=== PATIENT | male | born 1935 | race Caucasian/White ===

== ENCOUNTER 2016-03-23 12:10 | Inpatient (IN) | payer MEDICARE, OTHER ==
[~2016-03-23] VITALS: Ht 160 cm; Wt 99.8 kg
[2016-03-23] MEDS ORDERED: ASPIRIN 325 MG TABLET ONE (12:27)
[2016-03-23] MEDS ORDERED: ASPIRIN 325 MG TABLET PO ONE (12:30)
[2016-03-23 12:51] LABS: BASOPHILS % (AUTO) 0.3 % (0.0-2.0); DIFF TOTAL % 100 %; EOSINOPHILS # (AUTO) 0.2 /CMM (0.0-0.7); HEMATOCRIT 36 % (39-51); HEMOGLOBIN 12.3 g/dL (13.5-17.5); LYMPHOCYTES # (AUTO) 1.3 /CMM (0.8-4.8); LYMPHOCYTES % (AUTO) 26.7 % (20.0-44.0); MEAN CORPUSCULAR HEMOGLOBIN 32 PG (26.0-33.0); MEAN CORPUSCULAR HGB CONC 34 g/dl (31.0-36.0); MEAN CORPUSCULAR VOLUME 93 fL (80-96); MONOCYTES # (AUTO) 0.3 /CMM (0.1-1.30); NEUTROPHILS # (AUTO) 3.1 /CMM (1.8-8.9); PLATELET COUNT (AUTO) 155 /CMM (150-450); RED BLOOD CELL COUNT(AUTO) 3.89 MIL/uL (4.5-6.0); WHITE BLOOD COUNT (AUTO) 4.9 K/uL (4.3-11.0)
[2016-03-23 13:03] LABS: CREATININE 1.3 mg/dL (0.6-1.3); POTASSIUM 3.7 mmol/L (3.5-5.1)
[2016-03-23 13:06] LABS: INR 1.01 (0.87-1.13); PROTHROMBIN TIME 10.6 SECS (9.5-12.7)
[2016-03-23 13:17] LABS: TROPONIN I 0.659 ng/mL (0.00-0.056)
[2016-03-23] MEDS ORDERED: NITROGLYCERIN 0.4 MG/TAB BOTTLE ONE (14:00)
[2016-03-23] MEDS ORDERED: ENOXAPARIN SODIUM 60 MG/0.6 ML DISP.SYRIN SQ ONE (14:00)
[2016-03-23] MEDS ORDERED: NITROGLYCERIN 0.4 MG/TAB BOTTLE SL ONE (14:00)
[2016-03-23] MEDS ORDERED: ENOXAPARIN SODIUM 100 MG/ML DISP.SYRIN SQ ONE (14:00)
[2016-03-23] MEDS ORDERED: MYRBETRIQ PO (14:05)
[2016-03-23] MEDS ORDERED: HYDR-4076 PO (14:05)
[2016-03-23] MEDS ORDERED: AMLO5TAB2 PO (14:05)
[2016-03-23] MEDS ORDERED: METF500T4 PO (14:05)
[2016-03-23] MEDS ORDERED: MELO-270 PO (14:05)
[2016-03-23] MEDS ORDERED: ATOR20TA PO (14:05)
[2016-03-23] MEDS ORDERED: SITA100T PO (14:05)
[2016-03-23] MEDS ORDERED: MEMA28CA PO (14:05)
[2016-03-23] MEDS ORDERED: VALS1TAB50 PO (14:05)
[2016-03-23] MEDS ORDERED: MECL-102 PO (14:05)
[2016-03-23] MEDS ORDERED: DONE5TAB34 PO (14:05)
[2016-03-23] MEDS ORDERED: MORPHINE SULFATE INJ 2 MG/ML DISP.SYRIN IV PRN (15:30)
[2016-03-23] MEDS ORDERED: MECLIZINE HCL 25 MG TABLET PO PRN (15:30)
[2016-03-23] MEDS ORDERED: NITROGLYCERIN 0.4 MG/TAB BOTTLE SL PRN (15:30)
[2016-03-23] MEDS ORDERED: Medication Not On Formulary EA ([Myrbetriq] 25 MG) PO SCH (15:30)
[2016-03-23 16:00] VITALS: BP 117/62
[2016-03-23] MEDS ORDERED: hydrALAZINE HCL 25 MG TABLET PO SCH (17:00)
[2016-03-23] MEDS: MEMANTINE HCL 5 MG TABLET PO SCH (17:13)
[2016-03-23] MEDS: SITAGLIPTIN PHOSPHATE 50 MG TABLET PO SCH (17:14)
[2016-03-23] MEDS: VALSARTAN 80 MG TABLET PO SCH (17:15)
[2016-03-23] MEDS: HYDROCHLOROTHIAZIDE 25 MG TABLET PO SCH (17:15)
[2016-03-23 20:25] VITALS: BP 146/59
[2016-03-23] MEDS: CARVEDILOL 6.25 MG TABLET PO SCH (21:03)
[2016-03-24] VITALS (7 sets, daily range): BP systolic 102–148; BP diastolic 48–86
[2016-03-24] MEDS: ENOXAPARIN SODIUM 100 MG/ML DISP.SYRIN SQ SCH ×2 (01:24→13:02)
[2016-03-24] MEDS: DONEPEZIL 5 MG TABLET PO SCH (08:22)
[2016-03-24] MEDS: SITAGLIPTIN PHOSPHATE 50 MG TABLET PO SCH (08:23)
[2016-03-24] MEDS: VALSARTAN 80 MG TABLET PO SCH (08:23)
[2016-03-24] MEDS: CARVEDILOL 6.25 MG TABLET PO SCH ×2 (08:24→21:50)
[2016-03-24] MEDS: ISOSORBIDE MONONITRATE (30MG) 30 MG TAB.SR.24H PO SCH (08:24)
[2016-03-24] MEDS: HYDROCHLOROTHIAZIDE 25 MG TABLET PO SCH (08:24)
[2016-03-24] MEDS: AMLODIPINE BESYLATE 5 MG TABLET PO SCH (08:25)
[2016-03-24] MEDS: MEMANTINE HCL 5 MG TABLET PO SCH ×2 (08:25→16:06)
[2016-03-24] MEDS: ASPIRIN 81 MG TAB.CHEW PO SCH (08:25)
[2016-03-24] MEDS ORDERED: ATORVASTATIN 10 MG TABLET PO SCH (09:00)
[2016-03-24 15:35] LABS: BASOPHILS % (AUTO) 0.3 % (0.0-2.0); DIFF TOTAL % 100 %; EOSINOPHILS # (AUTO) 0.2 /CMM (0.0-0.7); EOSINOPHILS % (AUTO) 4.7 % (0.0-6.0); HEMATOCRIT 35 % (39-51); HEMOGLOBIN 11.8 g/dL (13.5-17.5); LYMPHOCYTES # (AUTO) 1.5 /CMM (0.8-4.8); LYMPHOCYTES % (AUTO) 28.5 % (20.0-44.0); MEAN CORPUSCULAR HEMOGLOBIN 31 PG (26.0-33.0); MEAN CORPUSCULAR HGB CONC 34 g/dl (31.0-36.0); MEAN CORPUSCULAR VOLUME 92 fL (80-96); MONOCYTES # (AUTO) 0.4 /CMM (0.1-1.30); MONOCYTES % (AUTO) 8.2 % (2.0-12.0); NEUTROPHILS # (AUTO) 3.1 /CMM (1.8-8.9); NEUTROPHILS % (AUTO) 58.3 % (43.0-81.0); PLATELET COUNT (AUTO) 174 /CMM (150-450); RED BLOOD CELL COUNT(AUTO) 3.79 MIL/uL (4.5-6.0); WHITE BLOOD COUNT (AUTO) 5.3 K/uL (4.3-11.0)
[2016-03-24 15:47] LABS: CREATININE 1.5 mg/dL (0.6-1.3); PHOSPHORUS 3.7 mg/dL (2.5-4.9); POTASSIUM 3.9 mmol/L (3.5-5.1)
[2016-03-24] MEDS ORDERED: POLYETHYLENE GLYCOL 3350 17 GM POWD.PACK PO ONE (17:30)
[2016-03-24] MEDS ORDERED: BISACODYL SUPP (10 MG) 10 MG/SUPP.RECT SUPP.RECT RC ONE (17:30)
[2016-03-25] VITALS: BP 103/53
[2016-03-25 04:00] VITALS: BP 113/50
[2016-03-25] MEDS ORDERED: CLOPIDOGREL BISULFATE 75 MG TABLET PO ONE (07:00)
[2016-03-25 08:00] VITALS: BP 107/50
[2016-03-25] MEDS: ASPIRIN 81 MG TAB.CHEW PO SCH (08:13)
[2016-03-25] MEDS: DONEPEZIL 5 MG TABLET PO SCH (08:13)
[2016-03-25] MEDS: SITAGLIPTIN PHOSPHATE 50 MG TABLET PO SCH (08:13)
[2016-03-25] MEDS: AMLODIPINE BESYLATE 5 MG TABLET PO SCH (08:14)
[2016-03-25] MEDS: ISOSORBIDE MONONITRATE (30MG) 30 MG TAB.SR.24H PO SCH (08:14)
[2016-03-25] MEDS: HYDROCHLOROTHIAZIDE 25 MG TABLET PO SCH (08:14)
[2016-03-25] MEDS: MEMANTINE HCL 5 MG TABLET PO SCH ×2 (08:14→16:06)
[2016-03-25] MEDS: VALSARTAN 80 MG TABLET PO SCH (08:15)
[2016-03-25] MEDS: CARVEDILOL 6.25 MG TABLET PO SCH (08:15)
[2016-03-25] MEDS ORDERED: NA PHOS,M-B/NA PHOS,DI-BA 1 EA ENEMA RC ONE (09:00)
[2016-03-25] MEDS ORDERED: ATORVASTATIN 10 MG TABLET PO SCH (09:00)
[2016-03-25] MEDS ORDERED: IV NS 0.9% 1,000 ML IV PRN (09:30)
[2016-03-25] MEDS ORDERED: IV NS 0.9% 1,000 ML BAG IV PRN (09:30)
[2016-03-25] MEDS ORDERED: IV SET PRIMARY PUMP SET 1 EA INFUS.SET MC ONE (09:32)
[2016-03-25 09:33] LABS: BASOPHILS % (AUTO) 0.6 % (0.0-2.0); DIFF TOTAL % 100 %; EOSINOPHILS # (AUTO) 0.2 /CMM (0.0-0.7); HEMATOCRIT 36 % (39-51); HEMOGLOBIN 12.1 g/dL (13.5-17.5); LYMPHOCYTES # (AUTO) 1.4 /CMM (0.8-4.8); LYMPHOCYTES % (AUTO) 30.5 % (20.0-44.0); MEAN CORPUSCULAR HEMOGLOBIN 31 PG (26.0-33.0); MEAN CORPUSCULAR HGB CONC 34 g/dl (31.0-36.0); MEAN CORPUSCULAR VOLUME 92 fL (80-96); MONOCYTES # (AUTO) 0.5 /CMM (0.1-1.30); MONOCYTES % (AUTO) 9.7 % (2.0-12.0); NEUTROPHILS # (AUTO) 2.6 /CMM (1.8-8.9); NEUTROPHILS % (AUTO) 54.2 % (43.0-81.0); PLATELET COUNT (AUTO) 160 /CMM (150-450); RED BLOOD CELL COUNT(AUTO) 3.91 MIL/uL (4.5-6.0); WHITE BLOOD COUNT (AUTO) 4.7 K/uL (4.3-11.0)
[2016-03-25 09:40] LABS: CREATININE 1.4 mg/dL (0.6-1.3); POTASSIUM 4.3 mmol/L (3.5-5.1)
[2016-03-25 12:00] VITALS: BP 123/66
== END 2016-03-25 12:30 | disposition short-term general hospital (02) | DRG 280 ==
LOC: ER 12:13 → TELE 15:02
PROVIDERS: ADMIT Internal Medicine; ATTEND Internal Medicine
DX: I21.4 Non-ST elevation (NSTEMI) myocardial infarction (principal); N17.0 Acute kidney failure with tubular necrosis; I13.0 Hypertensive heart and chronic kidney disease with heart failure and stage 1 through stage 4 chronic kidney disease, or unspecified chronic kidney disease; E78.5 Hyperlipidemia, unspecified; E66.01 Morbid (severe) obesity due to excess calories; E11.22 Type 2 diabetes mellitus with diabetic chronic kidney disease; F03.90 Unspecified dementia, unspecified severity, without behavioral disturbance, psychotic disturbance, mood disturbance, and anxiety; I25.10 Atherosclerotic heart disease of native coronary artery without angina pectoris; N18.9 Chronic kidney disease, unspecified; Z68.39 Body mass index [BMI] 39.0-39.9, adult; I50.9 Heart failure, unspecified
CPT/HCPCS: 36415; 71010-TC; 80048-TC; 80061-TC; 83735-TC; 84100-TC; 84484-TC; 85025-TC; 85730-TC; 87081-TC; 93307-TC; A4606; J1650; J7030; Z7610

== ENCOUNTER 2020-06-18 15:09 | Inpatient (IN) | payer MEDICARE, OTHER ==
[~2020-06-18] VITALS: Ht 162.6 cm; Wt 103.0 kg
[2020-06-18] VITALS (9 sets, daily range): BP systolic 132–167; BP diastolic 73–94
[~2020-06-18 15:09] MED LIST: AMLO-212 PO; ATOR20TA PO; DONE5TAB34 PO; HYDR-4076 PO; MECL-159 PO; MELO-105 PO; MEMA28CA PO; METF-440 PO; MYRBETRIQ PO; SITA100T PO; VALS1TAB6 PO
--- NOTE | 2020-06-18 15:18 | NUR ---
PT ARRIVED IN ICU FROM [facility] VIA AMBULANCE. AT BEDSIDE. PT ALERT, OX1, PLEASANT. ABRASION NOTED ON BACK OF HEAD, NO DRAINAGE NOTED. PT SETTLED IN BED. WILL CONTINUE TO MONITOR.
[2020-06-18] MEDS ORDERED: ASPI-1169 PO (15:57)
[2020-06-18] MEDS ORDERED: VALS160T29 PO (15:57)
[2020-06-18] MEDS ORDERED: QUET25TA PO (15:58)
[2020-06-18] MEDS ORDERED: LORA-259 PO (15:59)
[2020-06-18] MEDS ORDERED: ONDANSETRON HCL/PF 4 MG/2 ML VIAL IVP PRN (16:30)
[2020-06-18] MEDS ORDERED: ACETAMINOPHEN 325 MG TABLET PO PRN (16:30)
[2020-06-18] MEDS ORDERED: BLOOD SUGAR DIAGNOSTIC 1 EACH STRIP IN SCH (17:30)
--- NOTE | 2020-06-18 19:10 | NUR ---
RN/ICU-PT. NOTED NOT TO HAVE ANY IV LINE. PT. IS A VERY HARD STICK , MULTIPLE ATTEMPTS TO INSERT IV WAS DONE BY SEVERAL RN'S BUT TO NO AVAIL. WILL OBTAIN AN ORDER FROM HOSPITALIST MIRROR INSPECTOR FOR A MIDLINE INSERTION.
--- NOTE | 2020-06-18 19:25 | NUR ---
RN/ICU- PICC ALISA CARREON HERE TO INSERT A MIDLINE POST OBTAINING ORDER FROM CORRY OWENS.
--- NOTE | 2020-06-18 19:30 | NUR ---
END OF SHIFT NOTE: PT HAD CT OF HEAD, PER RADIOLOGIST NO STROKE NOTED. DR. VARGAS NOTIFIED. PT ACCIDENTLY PULLED OUT LEFT HAND IV AT 1630. PT IS DIFFICULT STICK, UNABLE TO GET PERIPHERAL IV, MIDLINE INSERTED. PT PASSED SWALLOW EVAL. PT CHECKED ON HOURLY AND PRN BY NURSING STAFF.
[2020-06-18 19:54] LABS: ALANINE AMINOTRANSFERASE 33 U/L (12-78); ALBUMIN 3.8 g/dL (3.4-5.0); ALKALINE PHOSPHATASE 59 U/L (46-116); ASPARTATE AMINOTRANSFERASE 20 U/L (15-37); BILIRUBIN,TOTAL 0.7 mg/dL (0.2-1.0); CALCIUM, SERUM 9.5 mg/dL (8.5-10.1); CARBON DIOXIDE 29 mmol/L (21-32); CHLORIDE 102 mmol/L (98-107); CREATININE 1.7 mg/dL (0.6-1.3); GLUCOSE 163 mg/dL (74-106); POTASSIUM 4.1 mmol/L (3.5-5.1); SODIUM SERUM 139 mmol/L (136-145); TOTAL PROTEIN, SERUM 8.2 g/dL (6.4-8.2); UREA NITROGEN, BLOOD 33 mg/dL (7-18)
[2020-06-18 20:00] LABS: D-DIMER 0.79 mg/L(FEU (0.17-0.50)
[2020-06-18] MEDS ORDERED: DEXTROSE 50%-WATER 50 ML DISP.SYRIN IV PRN (20:00)
[2020-06-18 20:01] LABS: CHOLESTEROL 246 mg/dL (<200); HDL CHOLESTEROL 45 mg/dL (40-60); LDL 141 mg/dL (0-99); THYROID STIMULATING HORMONE 3.277 uIU/mL (0.358-3.74); TRIGLYCERIDES 259 mg/dL (30-150)
[2020-06-18 20:28] LABS: BASOPHILS % (AUTO) 0.2 % (0.0-2.0); EOSINOPHILS % (AUTO) 1.1 % (0.0-6.0); HEMATOCRIT 39 % (39-51); HEMOGLOBIN 12.9 g/dL (13.5-17.5); LYMPHOCYTES # (AUTO) 1.7 /CMM (0.8-4.8); LYMPHOCYTES % (AUTO) 22.2 % (20.0-44.0); MEAN CORPUSCULAR HGB CONC 33 g/dl (31.0-36.0); MEAN CORPUSCULAR VOLUME 93 fL (80-96); MONOCYTES # (AUTO) 0.7 /CMM (0.1-1.30); MONOCYTES % (AUTO) 8.8 % (2.0-12.0); NEUTROPHILS # (AUTO) 5.2 /CMM (1.8-8.9); NEUTROPHILS % (AUTO) 67.7 % (43.0-81.0); PLATELET COUNT (AUTO) 211 /CMM (150-450); RED BLOOD CELL COUNT(AUTO) 4.16 MIL/uL (4.5-6.0); WHITE BLOOD COUNT (AUTO) 7.6 K/uL (4.3-11.0)
[2020-06-18] MEDS: QUETIAPINE FUMARATE 25 MG TABLET PO SCH ×2 (22:00→23:59)
[2020-06-18] MEDS: SIMVASTATIN 20 MG TABLET PO SCH ×2 (22:00→23:59)
[2020-06-18] MEDS: BLOOD SUGAR DIAGNOSTIC 1 EACH STRIP IN SCH (22:19)
--- NOTE | 2020-06-18 22:52 | NUR ---
PATIENT REFUSING TO TAKE MEDICATION SEROQUEL AND SIMVASTATIN SCHEDULED AT 2200. TRIED TO CALL FAMILY AND LEFT MESSAGES. RUBIA TUCKER PACKAGING ASSOCIATE IS AWARE.
[2020-06-18] MEDS: INSULIN REGULAR, HUMAN 100 UNIT/ML 3 ML VIAL SQ PRN (22:59)
--- NOTE | 2020-06-18 23:59 | NUR ---
PATIENT WAS ABLE TO SPEAK TO SON AND HAS AGREED TO TAKE MEDICATIONS.
[2020-06-19] VITALS (14 sets, daily range): BP systolic 99–177; BP diastolic 47–122
--- NOTE | 2020-06-19 03:53 | NUR ---
PATIENT CONSTANTLY TRYING TO GET OUT OF BED. TRIED TO RE DIRECT THE PATIENT BUT STILL ATTEMPTS TO GET OUT OF BED AND REMOVES BP CUFF AND PULSE OX. SECURITY STEPPED IN TO ASSIST IN RESTRAINING THE PATIENT. ORDER RECEIVED FROM Ruby ABRAHAM TO APPLY BILATERAL WRIST RESTRAINTS.
--- NOTE | 2020-06-19 06:33 | NUR ---
patient continues to be very agitated and combative. Continues to attempt to kick staff.
--- NOTE | 2020-06-19 06:34 | NUR ---
RECEIVED ORDER FOR EDUARDO.
[2020-06-19] MEDS: BLOOD SUGAR DIAGNOSTIC 1 EACH STRIP IN SCH ×4 (07:59→21:23)
--- NOTE | 2020-06-19 08:00 | NUR ---
RECEIVED REPORT FROM WOJCIECH, INITIAL ASSESSMENT DONE. PT IS CONFUSED, UNCOOPERATIVE, SITTER AT BEDSIDE. RESTRAINTS ON AT THIS TIME. PT DENIES PAIN, REFUSES TO EAT BREAKFAST. AWAITING DECISION FROM ADMINISTRATION ABOUT MRI. PT CHECKED ON HOURLY AND PRN BY NURSING STAFF.
[2020-06-19] MEDS: PANTOPRAZOLE 40 MG TABLET.DR PO SCH (09:05)
[2020-06-19] MEDS: METFORMIN 500 MG TABLET PO SCH (09:05)
[2020-06-19] MEDS: DONEPEZIL 5 MG TABLET PO SCH (09:06)
[2020-06-19] MEDS: INSULIN REGULAR, HUMAN 100 UNIT/ML 3 ML VIAL SQ PRN ×3 (09:10→21:23)
--- NOTE | 2020-06-19 10:00 | NUR ---
SITTER AT BEDSIDE. RESTRAINTS DC'D WHILE SITTER AT BEDSIDE, PT VERY AGITATED WHILE RESTRAINTS WERE ON.
--- NOTE | 2020-06-19 11:00 | NUR ---
PER ADMINISTRATION MRI NOT NEEDED SINCE CT SHOWED NO BLEED AND NO CURRENT STROKE. PT'S AND SON NOTIFIED.
--- NOTE | 2020-06-19 11:45 | NUR ---
SS Consult: SS Consult requested for stroke. The pt. is a 84-year old [place] male. The pt. is A&O x2 and very confused. RICHARD met with pt. bedside with Bushra Carrillo who assisted with translating. The pt.s speech was incoherent and as a result unable to complete Stroke Depression Survey. RICHARD called & poke with the pt.s son, Mickey Spivey [phone] to gather collateral information. Per Mickey, The pt. lives at home [[address] [facility] [address]; [phone]] with his , Tawnya [phone]. Per Mickey, the pt.s baseline is slightly confused as he has been diagnosed with Dementia in the past and is currently taking medication for Dementia. However, per Mickey, the pt. is almost always able to make needs known. Per Mickey, the pt. became increasingly confused after pt. has fall incident on 06/17/2020. Per Mickey, the pt. has a walker to assist him but pt. refuses to us it and mostly ambulates without it. Per Mallika, the pt. was walking down the stairs of his home, lost his balance and fell. RICHARD explored pt.s financial support. Per family, pt. receives SSI & EBT. Per family pt. does not use alcohol or other drugs. Per family, the pt. never has episodes of hallucination, SI or HI. RICHARD placed Empowerment after stroke paperwork in the pt.s discharge packet. RICHARD also placed the following senior resources in the pt.'s discharge packet: ABUSE PREVENTION: ELDER ABUSE HOTLINE (13/09) ADULT PROTECTIVE SERVICES HOTLINE LONG-TERM CARE [facility] Region AREA ON AGING (HOTLINE) ADULT DAY HEALTH CARE CARE CENTERS: Private pay or Medi-rufus funded adult day care [place] [facility] , [facility] , [facility] , [facility] , [facility] , [facility] , [place] [facility] , [facility] , Julian ALZHEIMERS DISEASE/DEMENTIA: Alzheimers Association Helpline [facility] Chapter www.alz.org/[facility] Department of Aging www.lacity.org Family Caregiver [place] www.caregiver.org [place] Caregiver Resources Center/Family Support www.losangelesscrc.org COMMUNITY HEALTH ASSOCIATIONS: AARP www.aarp.org ALS Association (ask for Crista) www.als.org Serbian Diabetes Association www.diabetes.org Serbian Heart Association www.heart.org Serbian Lung Association www.lungusa.org Serbian Parkinson Disease Association www.apdaparkinson.org Serbian [place] , www.redcross.org Arthritis Foundation www.arthritis.org Crohns & Colitis Foundation of [place] www.ccfa.org/chapters/antonio National Multiple Sclerosis Society www.nationalmssociety.org Myasthenia Gravis Foundation www.myasthenia-ca.org National Stroke Association www.stroke.org CONSERVATORSHIP & GUARDIANSHIP: AARP Janiya Kennedy Legal Services Center for Health Care Rights [place] Information and Referral Bath House Attendant Foundation [facility]: [facility] Bar Referral Service [facility] Neighborhood Legal Services Office of the Public Guardian [place] GRIEF AND BEREAVEMENT RESOURCES: [facility] [place] , [facility] THE [facility] , [facility] Bereavement Center , [place] HELP AT HOME CAREGIVER SUPPORT: In Home Support Services (Must have Medi-Rufus to be eligible) *Ask for a list of agencies that provide services to assist with care in the home. Local Senior Centers also have listings of care providers. HOME SAFETY MODIFICATIONS AND EQUIPMENT: Senior centers have additional referrals. [facility] Cashpath Financial and Stilnest Investment Dept. Handyworker Program (low income) or Visit http://hcidla.[facility].org/yxl-tjhxzo-hc for more information National Seating and Mobility and/or ; Forever Active www.foreveractivemed.[facility] Stay Home Safe www.Stayhomesafe.com LIFE ALERT RESPONSE SYSTEM: [employer] Lifeline Services 053-298-3859 www. LifeIndependent Artist Competition Assoc..[facility] Life Alert 863-122-1832 www.lifealert.[facility] Life Station 317-676-2649 www.lifestation.com Safe Return 345-135-5586 www.alz.or/safereturn Cell Phones for Seniors www.Viratech MEALS AND FOOD PROGRAMS: [place] Meals on Wheels [phone] [place] Meals on Wheels [phone] [facility] [phone] [place] to the Homebound [phone] [place] to the Homebound [phone] [facility] to the Homebound [phone] [facility] to the Homebound [phone] [facility] Health[facility] [phone] [facility] [phone] ONE Generation [phone] [facility] [phone] [facility] [phone] Meals on Wheels [phone] For all ages: $6.85/ meal w side. Delivered M-F from 10 am-1pm. Application and payment is done over the phone. Frozen meals available for weekends. Seen Food [facility] [phone] [facility] Hydroelectric Plant Operator [phone] [facility] [phone] [facility]- Brown bag lunches [phone] [facility] [phone] MEAL/GROCERY DELIVERY PROGRAMS: [facility] Gourmet Meals [phone]- [facility] [phone]- [facility] Magic Kitchen [phone] Moms Meals [phone] (ask Verdin for Discount Select grocery stores may provide delivery. MEDICAL INSURANCE SUPPORT SERVICES: Center for Health Care Rights [phone] Health Insurance Counseling/Advocacy Programs (HICAP)-Must have Medicare. Offers counseling for Medi-Rufus eligibility [phone] Department of Public Hydroelectric Plant Operator 752-426-0045 www.[facility].ca.gov Medicare 219-238-6247 www.socialsecurity.org Social Security [phone] SENIOR ACTIVITY PROGRAMS: *Contact a local senior center, adult school, recreation facility or community college for education, fitness, recreation, and social programs. Aquatic Therapy and Adapted Exercise programs through [facility] [phone] [facility] at [facility] [phone] www.[facility]/encore H2U- Senior Friends [phone] [place] Senior Programs 010-028-9813 www.oasisnet.org Suddenly 65 www.ixtbxxbp63.com SENIOR CENTERS: [facility] [phone] [facility] [phone] [facility] [phone] [facility] [phone] [facility] [phone] [facility] [phone] [facility] [phone] [facility] [phone] [facility] [phone] [facility] [phone] [facility] [phone] [facility] [phone] [facility] [phone] TRANSPORTATION: Local [facility] may have applications for transportation programs and additional resources. ACCESS Services [phone] Transportation for seniors and disabled persons 7 days a week requiring 254 hr. advance reservation. Must apply and register for program leilani eligible. [employer] 626-274-9631 or [phone] Transportation for seniors and persons with ADA card/metro disabled card in the [facility]. M-F only. Must register for services. ONE GENERATION [phone] Serves 65 years + in conjunction with Verdiem program. Must be registered with both programs. A to B Transport [phone] Provides wheelchair/gurney van service. Adult Medical Transport [phone] Accepts [facility] with prior authorization. [facility] [phone] Provides wheelchair Transport. [facility] Wide Transportation [phone] Provides gurney service [facility] [phone] Gurney Transport. All Town Transportation [phone] wheelchair & gurney transport D Transportation [phone] wheelchair & gurney transport [place] Non-Emergency Transport [phone] wheelchair & gurney transport [facility] Living [place] [phone] Short Term Transportation primarily for adults with disabilities on social security income. Nominal fee may apply and a reservation is required. [employer] [phone] or [phone] [facility] [phone] [place] [address] -[phone] For additional programs & services
[2020-06-19] MEDS ORDERED: IBUPROFEN 400 MG TABLET PO PRN (13:30)
--- NOTE | 2020-06-19 13:30 | NUR ---
PT TRANSFERRED TO ROOM 120, BEDSIDE REPORT GIVEN TO WALDO CUELLAR. SITTER SENT WITH PATIENT. PT'S AND SON ALSO AT BEDSIDE WITH PERMISSION FROM FLIGHT ENGINEER SOON. PT TRANSFERRED BY WHEELCHAIR WITH ALL PERSONAL BELONGINGS.
--- NOTE | 2020-06-19 19:39 | NUR ---
PATIENT RECEIVED FROM ICU. VITAL SIGNS TAKEN. SAFETY PRECAUTIONS IMPLEMENTED, SIDE RAILS UP X2, BED LOCKED IN LOWEST POSITION, CALL LIGHT WITHIN REACH. WILL ENDORSE CONTINUATION OF CARE TO UPCOMING SHIFT.
[2020-06-19] MEDS: QUETIAPINE FUMARATE 25 MG TABLET PO SCH (21:06)
[2020-06-19] MEDS ORDERED: LORAZEPAM 0.5 MG TABLET PO PRN (21:30)
[2020-06-19] MEDS: SIMVASTATIN 20 MG TABLET PO SCH (23:22)
[2020-06-20] VITALS: BP 148/78
[2020-06-20 04:00] VITALS: BP 126/69
--- NOTE | 2020-06-20 06:02 | NUR ---
RN notes Patient resting comfortably in bed with at bedside. Alert and oriented with confusion. No episode of agitation during the night. On 3 liters O2 via nasal cannula tolerating well. No distress noted. Vital signs WNL. Kept clean and dry. Will endorse to next shift for continuity of care.
[2020-06-20 06:21] LABS: BASOPHILS % (AUTO) 0.4 % (0.0-2.0); EOSINOPHILS % (AUTO) 4.7 % (0.0-6.0); HEMATOCRIT 38 % (39-51); HEMOGLOBIN 12.5 g/dL (13.5-17.5); LYMPHOCYTES % (AUTO) 28.6 % (20.0-44.0); MEAN CORPUSCULAR HGB CONC 33 g/dl (31.0-36.0); MEAN CORPUSCULAR VOLUME 94 fL (80-96); MONOCYTES # (AUTO) 0.7 /CMM (0.1-1.30); MONOCYTES % (AUTO) 10.3 % (2.0-12.0); NEUTROPHILS # (AUTO) 3.9 /CMM (1.8-8.9); PLATELET COUNT (AUTO) 200 /CMM (150-450); RED BLOOD CELL COUNT(AUTO) 4.06 MIL/uL (4.5-6.0)
[2020-06-20 07:18] LABS: ALANINE AMINOTRANSFERASE 33 U/L (12-78); ALBUMIN 3.3 g/dL (3.4-5.0); ALKALINE PHOSPHATASE 54 U/L (46-116); ASPARTATE AMINOTRANSFERASE 41 U/L (15-37); BILIRUBIN,TOTAL 0.6 mg/dL (0.2-1.0); CARBON DIOXIDE 25 mmol/L (21-32); CHLORIDE 102 mmol/L (98-107); CREATININE 1.6 mg/dL (0.6-1.3); GLUCOSE 142 mg/dL (74-106); MAGNESIUM 2.1 mg/dL (1.8-2.4); PHOSPHORUS 3.5 mg/dL (2.5-4.9); POTASSIUM 5.1 mmol/L (3.5-5.1); SODIUM SERUM 137 mmol/L (136-145); TOTAL PROTEIN, SERUM 7.5 g/dL (6.4-8.2); UREA NITROGEN, BLOOD 37 mg/dL (7-18)
[2020-06-20] MEDS: BLOOD SUGAR DIAGNOSTIC 1 EACH STRIP IN SCH ×2 (07:30→12:06)
[2020-06-20 08:45] VITALS: BP 132/72
--- NOTE | 2020-06-20 08:53 | NUR ---
patient transferred to room 308. bedside report given to
--- NOTE | 2020-06-20 09:00 | NUR ---
received pt from tele1 via bed accompanied by 2 staff and . per report pt has no iv line and bs taken at bedside. per , pt to go home today as promised yesterday. cn made aware, might need line if pt does not go home today. awaiting for md mo. oriented to room and surroundings. vss, afebrile. will continue to monitor.
[2020-06-20] MEDS: DONEPEZIL 5 MG TABLET PO SCH (09:15)
[2020-06-20] MEDS: PANTOPRAZOLE 40 MG TABLET.DR PO SCH (09:15)
[2020-06-20] MEDS: METFORMIN 500 MG TABLET PO SCH (09:15)
--- NOTE | 2020-06-20 10:00 | NUR ---
triggered wound consult re: laceration on back of head and right elbow abrasion.
--- NOTE | 2020-06-20 10:10 | NUR ---
ambulated using fww by prosalia seaman at this time,
[2020-06-20] MEDS: INSULIN REGULAR, HUMAN 100 UNIT/ML 3 ML VIAL SQ PRN ×2 (10:21→11:33)
--- NOTE | 2020-06-20 12:15 | NUR ---
tele workforce development vice president: md visit seen and examined by dr. mcnally. at bedside. md spoke to and plan to discharge him today. verbalized understanding. tele removed. pt has no iv. to call friends to pick em up.
--- NOTE | 2020-06-20 13:32 | NUR ---
tele maintenance welder: notes received discharge order from dr. mcnally. order acknowledged. and pt made aware.
--- NOTE | 2020-06-20 14:00 | NUR ---
tele validation scientist: notes discharge instructions given to and verbalized understanding. verbalized understanding to limit sedative/hypnotics; also to follow up with his primary care in one week.
--- NOTE | 2020-06-20 14:05 | NUR ---
tele baseball club manager: discharged discharged home in stable condition accompanied by and niece via private car with d'c papers.
[2020-06-20] MEDS ORDERED: SIMVASTATIN 20 MG TABLET PO SCH (22:00)
[2020-06-20] MEDS ORDERED: ATORVASTATIN 40 MG TABLET PO SCH (22:00)
== END 2020-06-20 14:04 | disposition home or self-care (01) | DRG 149 ==
LOC: ICU 15:09 → TELE1 06-19 13:22 → TELE 06-20 08:40
PROC: 05H933Z Insertion of Infusion Device into Right Brachial Vein, Percutaneous Approach (ICD-10-PCS; principal; 2020-06-18)
DX: H81.10 Benign paroxysmal vertigo, unspecified ear (principal); N17.0 Acute kidney failure with tubular necrosis; I13.0 Hypertensive heart and chronic kidney disease with heart failure and stage 1 through stage 4 chronic kidney disease, or unspecified chronic kidney disease; W19.XXXA Unspecified fall, initial encounter; Y92.009 Unspecified place in unspecified non-institutional (private) residence as the place of occurrence of the external cause; R29.700 NIHSS score 0; E78.5 Hyperlipidemia, unspecified; N18.9 Chronic kidney disease, unspecified; E11.22 Type 2 diabetes mellitus with diabetic chronic kidney disease; I25.10 Atherosclerotic heart disease of native coronary artery without angina pectoris; I50.9 Heart failure, unspecified; Z95.5 Presence of coronary angioplasty implant and graft; E11.40 Type 2 diabetes mellitus with diabetic neuropathy, unspecified
CPT/HCPCS: 36415; 70450-TC; 80053-TC; 80061-TC; 82962-TC; 83735-TC; 84100-TC; 84443-TC; 84484-TC; 85025-TC; 85378-TC; 85652-TC; 85730-TC; 92526; 92611-TC; 93307-TC; 93880-TC; 97110-TC; 97112-TC; 97116-TC; 97530-TC; G0378; J1815